=== PATIENT | male | born 1970 | race Caucasian/White ===

== ENCOUNTER → 2020-06-07 15:43 | Outpatient (BNVA) | payer BC, SELFPAY | PROVIDERS: PCP Internal Medicine; Referring Provider Internal Medicine; Visit Provider Hospitalist | DX: Z76.89 Persons encountering health services in other specified circumstances (principal) ==

== ENCOUNTER → 2020-12-13 15:52 | Outpatient (BNVA) | payer BC, SELFPAY | PROVIDERS: PCP Internal Medicine; Visit Provider Hospitalist ==

== ENCOUNTER → 2021-07-11 15:50 | Outpatient (BNVA) | payer BC, SELFPAY | PROVIDERS: PCP Internal Medicine; Visit Provider Hospitalist ==

== ENCOUNTER 2021-07-23 15:09 | Outpatient (REF) | payer BC, SELFPAY ==
[2021-07-23 15:19] LABS: MANUAL DIFF FLAG NO
[2021-07-23 15:37] LABS: Basophils Percent Auto 0.4 % (0-2); Eosinophils Absolute Auto 0.1 X10*3/uL (0.0-0.4); Eosinophils Percent Auto 1.5 % (0-4); Hematocrit 43.7 % (42.0-52.0); Hemoglobin 14.7 g/dl (14.0-18.0); Imm Gran Abs Auto 0.01 X10*3/uL (0.00-0.03); Imm Gran Pct Auto 0.2 % (0.0-0.4); Lymphocytes Absolute Auto 1.1 X10*3/uL (1.2-4.9); Lymphocytes Percent Auto 23.4 % (20-40); Mean Corpuscular HGB Conc 33.6 g/dl (31.0-36.0); Mean Corpuscular Hemoglobin 29.8 pg (27.0-33.0); Mean Corpuscular Volume 88.5 fL (80.0-98.0); Monocytes Absolute Auto 0.4 X10*3/uL (0.1-1.2); Monocytes Percent Auto 7.9 % (2-11); Neutrophils Absolute Auto 3.2 x10*3/uL (2.0-8.3); Neutrophils Percent Auto 66.6 % (45-73); Platelet Count 242 X10*3/uL (160-400); Red Blood Count 4.94 X10*6/uL (4.60-5.80); Red Cell Distribution Width 13.2 % (11.0-16.0); White Blood Count 4.8 X10*3/uL (4.8-10.8)
[2021-07-25 15:02] LABS: Anti Nuclear Antibody Screen NEGATIVE (NEGATIVE)
[2021-07-26 07:57] LABS: Antibody to SS-A Antigen <1.0 NEG AI (<1.0 NEG); Antibody to SS-B Antigen <1.0 NEG AI (<1.0 NEG); Scleroderma 70 Antibody <1.0 NEG AI (<1.0 NEG)
== END 2021-07-23 15:10 | disposition home or self-care (01) ==
LOC: HO.LAB 15:09
PROVIDERS: PCP Internal Medicine; Visit Provider Hospitalist
DX: R91.8 Other nonspecific abnormal finding of lung field (principal)
CPT/HCPCS: 36415; 85025; 86038; 86039; 86235

== ENCOUNTER 2021-10-23 16:28 | Outpatient (REF) | payer BC, SELFPAY ==
--- NOTE | ~2021-10-23 | CT_ITS ---
EXAMINATION: CT CHEST WITHOUT CONTRAST CLINICAL INFORMATION: Followup nodules. COMPARISON: None TECHNIQUE: Multidetector volumetric CT imaging of the chest was done. Axial MIP volume rendering provided. Sagittal and coronal reformatted images were obtained. This CT examination was performed using dose optimization techniques as appropriate, variously including the following: *Automated exposure control *Adjustment of mA and/or kV according to patient size (this includes techniques or standardized protocols for targeted exams where dose is matched to indication/reason for exam; i.e. extremities or head) *Use of iterative reconstruction technique DLP: 162 mGy-cm FINDINGS: FILTER PULP WASHER: Unremarkable. LUNGS: There is a 4 mm ill-defined nodule left lung apex image 13/4, 1 mm calcified nodule right upper lobe axial image 209/7, 1 mm nodule image 255/7, 2 mm calcified nodule right upper lobe axial image 319/7, 2 mm nodule in the lingula axial image 395/7, 1 mm nodule right lower lobe axial image 420/7, 2 mm calcified nodule left lower lobe axial image 426/7, 4 mm nodule right lower lobe lateral segment image 487/7. No acute consolidation, ground-glass density or mass visualized. MEDIASTINUM: The thyroid lobes are symmetrical and normal. The central trachea and the bronchi are widely patent. The heart size and the great vessels are normal caliber. There is no pericardial effusion. No abnormal sized mediastinal or hilar lymph nodes seen. PLEURA: There is no pleural effusion. No pleural mass or thickening. AXILLA: No lymphadenopathy. UPPER ABDOMEN: The visualized liver, spleen, pancreas, and bilateral adrenal glands are unremarkable. No radiopaque gallstones or wall thickening seen. OSSEOUS STRUCTURES: There is no lytic or sclerotic process seen. There is mild spondylosis of the dorsal spine. CT/CT chest wo con IMPRESSION: Stable calcified and some noncalcified scattered nodules in the range of 1 to 4 mm throughout both lungs. The calcified nodules are likely granulomas. Recommend 18 to 24-month followup as per Fleischner guidelines. Fleischner guidelines were followed.
== END 2021-10-23 16:29 | disposition home or self-care (01) ==
LOC: HO.CT 16:28
PROVIDERS: Visit Provider Hospitalist
DX: R91.8 Other nonspecific abnormal finding of lung field (principal)
CPT/HCPCS: 71250

== ENCOUNTER → 2021-11-08 15:06 | Outpatient (BNVA) | payer BC, SELFPAY | PROVIDERS: PCP Internal Medicine; Visit Provider Hospitalist | DX: R91.8 Other nonspecific abnormal finding of lung field (principal) ==

== ENCOUNTER → 2022-08-15 13:19 | Outpatient (BNVA) | payer BC, SELFPAY | PROVIDERS: PCP Internal Medicine; Visit Provider Hospitalist | DX: Z23 Encounter for immunization (principal); R91.8 Other nonspecific abnormal finding of lung field; J45.40 Moderate persistent asthma, uncomplicated; I73.00 Raynaud's syndrome without gangrene; R06.00 Dyspnea, unspecified | CPT/HCPCS: 90471; 90686 ==

== ENCOUNTER → 2023-02-27 15:41 | Outpatient (BNVA) | payer BC, SELFPAY | PROVIDERS: PCP Internal Medicine; Visit Provider Hospitalist ==

== ENCOUNTER 2023-04-29 13:38 | Outpatient (REF) | payer BC, SELFPAY ==
--- NOTE | ~2023-04-29 | MR_ITS ---
EXAMINATION: MR BRAIN WITH AND WITHOUT CONTRAST CLINICAL INFORMATION: Memory loss, cognitive decline COMPARISON: None. TECHNIQUE: MRI of the brain was obtained using routine sequences before and following administration of intravenous contrast. A total of 7.5 mL of Gadavist was administered intravenously. FINDINGS: No acute infarct. The GRE sequence is without susceptibility artifact to suggest acute or chronic blood products. No extra-axial fluid collection. The ventricles and sulci are normal in size and configuration without significant volume loss or hydrocephalus. No parenchymal signal abnormality. No abnormal intraparenchymal or leptomeningeal enhancement. No significant mass effect or herniation pattern. The intracranial dural venous sinus and arterial flow voids are preserved. Borderline low-lying terminating up to 6 mm below the foramen magnum with effacement of the dorsal CSF but no mass effect along the cervicomedullary junction. Reduced medullopontine interval measuring 5 mm, however without additional ancillary findings to suggest spontaneous intracranial hypotension. The orbits are grossly unremarkable. Mild to moderate ethmoid air cell mucosal thickening otherwise mild scattered paranasal sinus mucosal disease. A few opacified bilateral mastoid air cells. Normal marrow signal. MR/MR head/brain wo/w con IMPRESSION: No acute intracranial abnormality or pathologic intracranial enhancement. No significant volume loss or parenchymal signal abnormality. Borderline low-lying terminating up to 6 mm below the foramen magnum with effacement of the dorsal CSF but no mass effect along the cervicomedullary junction. Reduced medullopontine interval measuring 5 mm, however without additional ancillary findings to suggest spontaneous intracranial hypotension.
[2023-04-29] MEDS: gadobutroL 7.5 ML VIAL IVPUSH (14:20)
== END 2023-04-29 13:39 | disposition home or self-care (01) ==
LOC: HO.MRI 13:38
PROVIDERS: PCP Internal Medicine; Visit Provider Psychiatry & Neurology Neurology
DX: G93.40 Encephalopathy, unspecified (principal)
CPT/HCPCS: 70553; A9585

== ENCOUNTER 2023-08-05 15:01 | Outpatient (REF) | payer BC, SELFPAY ==
--- NOTE | ~2023-08-05 | CT_ITS ---
EXAMINATION: CT CHEST WITHOUT CONTRAST CLINICAL INFORMATION: Follow-up pulmonary nodules. COMPARISON: Chest CT 10/23/2021 and 05/18/2020 and 05/03/2019. TECHNIQUE: Multidetector volumetric CT imaging of the chest was done. Axial MIP volume rendering provided. Sagittal and coronal reformatted images were obtained. This CT examination was performed using dose optimization techniques as appropriate, variously including the following: *Automated exposure control *Adjustment of mA and/or kV according to patient size (this includes techniques or standardized protocols for targeted exams where dose is matched to indication/reason for exam; i.e. extremities or head) *Use of iterative reconstruction technique DLP: 173 mGy-cm FINDINGS: LUNGS: Multiple scattered tiny lung nodules measuring up to 3-4 mm are stable. No new or suspiciously enlarging nodule. MEDIASTINUM: The mediastinum is normal. CORONARY ARTERY CALCIFICATION: None visualized on this study. PLEURA: There is no pleural effusion. No pleural mass or thickening. AXILLA: No lymphadenopathy. UPPER ABDOMEN: Parapelvic cysts in the left kidney are simple and require no follow-up. OSSEOUS STRUCTURES: No suspicious osseous lesions. CT/CT chest wo IV con IMPRESSION: Stable tiny nodules. No follow-up imaging is recommended as per Fleischner Society guidelines.. Fleischner guidelines were followed.
== END 2023-08-05 15:02 | disposition home or self-care (01) ==
LOC: HO.CT 15:01
PROVIDERS: PCP Internal Medicine; Visit Provider Hospitalist
DX: R91.8 Other nonspecific abnormal finding of lung field (principal)
CPT/HCPCS: 71250

== ENCOUNTER 2023-09-28 15:30 | Outpatient (AMB) | payer BC, SELFPAY ==
[2023-09-28 15:35] VITALS: PULSE 61; O2SAT 100; BMI 25.1
--- NOTE | 2023-09-28 15:35 | A.OFFVIS_ITS ---
Intake Vital Signs 09/28/23 15:35 Height 5 ft 7 in Weight 160 lb BMI 25.1 Pulse 61 Pulse Source Pulse Oximeter Pulse Oximetry (%) 100 Oxygen Delivery Method Room Air Intake Visit Reasons: asthma Drilling Assistant Required: No Allergies No Known Allergies [No Known Allergies*] Allergy (Verified 09/28/23 15:36) HPI HPI Comments History of Present Illness Details The patient is a 53 y/o man with a history pulmonary nodules and history of prostate cancer. Overall he is doing a lot better. He was evaluated for a lower respiratory infection several weeks ago. He was started general Advair given antibiotics. We did review his pulmonary function studies which demonstrate normal lung mechanics. He also had a CT scan of the chest demonstrating small 2-3 mm pulmonary nodules. Overall though looks stable. He should get another CT scan in a year. He has been complaining of significant siddhartha ght loss and also other constitutional symptoms including decreased energy. Based on the pulmonary nodules will do brief workup. At this point he still has the pulmonary nodules. His next CAT scan will be for May 2020. He has been complaining of difficulty concentrating. Also has daytime drowsiness. His Providence score is elevated 08/30. His primary care doctor was also concern and did recommend for him to have a sleep study. At this point will do a sleep study. 08/15/2022 the patient is here for a pulmonary follow-up visit. he has been complaining of worsening dyspnea on exertion. Khah-pf-qaydlgyh severity. Does get better with rest. 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 He does use the Symbicort but not regularly. Patient understands that he needs to use it regularly to see the improvement in his respiratory status. He is willing to use it at least in the morning which is reassuring. If he needs a later on in the evening he can also use it then as needed. The patient did undergo a CT scan of the chest back in October 2021. We did review it together and we also reviewed a [facility] CT [facility] that [facility]. At least from my evaluation appears that he has more subcentimeter pulmonary nodules now that he had done. They are small between 2 to mm in size. Therefore will go ahead and repeat the CT scan the year from now to assess further progression of these nodules. The patient also has a significant family history of pulmonary fibrosis. No evidence of any interstitial lung disease or pneumoconiosis appreciated. Continue to monitor closely. 02/27/2023 the patient is here for pulmonary follow-up visit. Overall the patient has been doing well from a respiratory status. He had a hard time recently when working in a very humid it hard room. He does have his rescue medication to use at times. Otherwise no issues. Has not required any antibiotics or prednisone. The patient does have underlying pulmonary nodules with a history of prostate cancer. The patient's nodules have been stable for many years. We will be following with a repeat CT scan [address] last [address] scan which will be in August 2023. Will plan to follow-up afterwards we can compare his CT scans together. Otherwise patient is doing well will call if any issues arise. 09/28/2023 the patient is here for a pulmonary follow-up visit. Overall the patient has been doing well from a respiratory status. He does have his respiratory medications that he uses as prescribed. He has not required any prednisone antibiotics. He recently underwent a orthopedic procedure for his knee and seems to be doing well from that. The patient did have a CT scan back in July 2023 and we did compare to his previous CT scans. His pulmonary nodules have been stable altogether for many years. Therefore this point is safe for us to stop imaging his chest. He will continue using his respiratory medications. Will follow-up in a year's time. If he develops any worsening symptoms prior to that he will call for an earlier assessment. [facility] Medical History (Updated 09/28/23 @ 19:58 by Tristan Dover MD) Dyspnea Raynaud disease Prostate CA Pulmonary nodules Asthma Family History (Updated 06/02/20 @ 13:28 by SHERRILL Acosta) Father Pulmonary fibrosis Mother Pulmonary fibrosis Social History (Updated 11/18/21 @ 09:48 by SHERRILL Acosta) Patient Tobacco Use Status: Never used Tobacco Years Smoked: off and on Review of Systems Const Denies night sweats ENT Denies change in voice, Denies lip swelling, Denies mouth pain, Reports nasal congestion, Reports nasal discharge and Denies tongue swelling Card Denies chest pain and Denies dyspnea on exertion Resp Reports cough and Denies dyspnea on exertion GI Denies abdominal pain Musc Denies no additional complaints and Reports back pain Skin/Breast Reports other ( Raynaud's) Neuro Denies Neuro-related abnormal movements and Reports radicular pain Psych Denies no additional complaints and Reports anxiety Quinton/Lymph Denies easy bleeding, Denies easy bruising and Denies lymphadenopathy Aller/Immun Denies lip swelling and Denies tongue swelling Physical Exam Vital Signs: Last Vital Signs Pulse 61 09/28/23 15:35 Pulse Ox 100 09/28/23 15:35 Oxygen Delivery Method Room Air 09/28/23 15:35 BMI result Body Mass Index 25.1 Const General: alert HEENT Head: Yes normocephalic Neck Neck: Yes normal visual inspection, Yes full ROM and Yes no lymphadenopathy Chest Chest palpation & inspection: normal inspection of the chest Resp Effort & Inspection: normal respiratory effort Auscultation: clear to auscultation bilaterally Cardio Rate: regular rate Rhythm: regular rhythm Heart sounds: S1 normal heart sound present and S2 normal heart sound present GI Palpation (GI): Soft to palpation and nontender Auscultation: normal bowel sounds Skin General skin exam: no rashes or lesions noted Extrem General: Yes no clubbing, cyanosis or edema Assessment & Plan Assessment & Plan (1) Pulmonary nodules: Comment: stable Code(s): R91.8 - Other nonspecific abnormal finding of lung field (2) Asthma: Code(s): J45.909 - Unspecified asthma, uncomplicated Qualifiers: Asthma complication type: uncomplicated Asthma persistence: persistent Asthma severity: moderate Qualified Code(s): J45.40 - Moderate persistent asthma, uncomplicated (3) Raynaud disease: Code(s): I73.00 - Raynaud's syndrome without gangrene Qualifiers: Raynaud?s-associated gangrene presence: without gangrene Qualified Code(s): I73.00 - Raynaud's syndrome without gangrene Plan Continue Symbicort ALEJANDRA asneeded Continue Singulair and Zyrtec as needed No further serial CT chest F/U 1 yr Coding Level of Care Code Est Pt Level 4 (74020) Diagnoses Pulmonary nodules R91.8 Moderate persistent asthma without complication J45.40 Asthma complication type: uncomplicated Asthma persistence: persistent Asthma severity: moderate Raynaud's disease without gangrene I73.00 Raynaud?s-associated gangrene presence: without gangrene Time Spent (min) 16
== END 2023-09-28 15:51 | disposition home or self-care (01) ==
PROVIDERS: PCP Internal Medicine; Visit Provider Hospitalist
DX: R91.8 Other nonspecific abnormal finding of lung field (principal); J45.40 Moderate persistent asthma, uncomplicated; I73.00 Raynaud's syndrome without gangrene
CPT/HCPCS: 99214

== ENCOUNTER → 2023-09-28 15:30 | Outpatient (BNVA) | payer BC, SELFPAY | PROVIDERS: PCP Internal Medicine; Visit Provider Hospitalist ==

== ENCOUNTER 2024-06-20 15:41 | Outpatient (REF) | payer BC, SELFPAY ==
[2024-06-20 17:22] LABS: Vitamin B12 363 pg/mL (200-900)
== END 2024-06-20 15:42 | disposition home or self-care (01) ==
LOC: HO.LAB 15:41
PROVIDERS: PCP Internal Medicine; Visit Provider Psychiatry & Neurology Neurology
DX: G31.84 Mild cognitive impairment of uncertain or unknown etiology (principal)
CPT/HCPCS: 36415; 82607

== ENCOUNTER 2024-10-14 14:45 | Outpatient (AMB) | payer BC, SELFPAY ==
--- NOTE | 2024-10-14 14:46 | MHC.OFFVIS ---
Vital Signs 10/14/24 14:47 Height 5 ft 7 in Weight 160 lb 14.999 oz BMI 25.2 BP 128/86 Blood Pressure Location Rt brachial Position Sitting Pulse 66 Pulse Source Pulse Oximeter Pulse Oximetry (%) 99 Oxygen Delivery Method Room Air Intake Visit Reasons: Asthma Allergies No Known Allergies [No Known Allergies*] Allergy (Verified 10/14/24 14:49) HPI Comments Details: The patient is a 54 y/o man with a history pulmonary nodules and history of prostate cancer. Overall he is doing a lot better. He was evaluated for a lower respiratory infection several weeks ago. He was started general Advair given antibiotics. We did review his pulmonary function studies which demonstrate normal lung mechanics. He also had a CT scan of the chest demonstrating small 2-3 mm pulmonary nodules. Overall though looks stable. He should get another CT scan in a year. He has been complaining of significant weight loss and also other constitutional symptoms including decreased energy. Based on the pulmonary nodules will do brief workup. At this point he still has the pulmonary nodules. His next CAT scan will be for May 2020. He has been complaining of difficulty concentrating. Also has daytime drowsiness. His [place] score is elevated 08/30. His primary care doctor was also concern and did recommend for him to have a sleep study. At this point will do a sleep study. 08/15/2022 the patient is here for a pulmonary follow-up visit. he has been complaining of worsening dyspnea on exertion. [id number]-egkcmulv severity. Does get better with rest. 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 He does use the Symbicort but not regularly. Patient understands that he needs to use it regularly to see the improvement in his respiratory status. He is willing to use it at least in the morning which is reassuring. If he needs a later on in the evening he can also use it then as needed. The patient did undergo a CT scan of the chest back in October 2021. We did review it together and we also reviewed a previous CT scan that [facility]. At least from my evaluation appears that he has more subcentimeter pulmonary nodules now that he had done. They are small between 2 to mm in size. Therefore will go ahead and repeat the CT scan the year from now to assess further progression of these nodules. The patient also has a significant family history of pulmonary fibrosis. No evidence of any interstitial lung disease or pneumoconiosis appreciated. Continue to monitor closely. 02/27/2023 the patient is here for pulmonary follow-up visit. Overall the patient has been doing well from a respiratory status. He had a hard time recently when working in a very humid it hard room. He does have his rescue medication to use at times. Otherwise no issues. Has not required any antibiotics or prednisone. The patient does have underlying pulmonary nodules with a history of prostate cancer. The patient's nodules have been stable for many years. We will be following with a repeat CT scan [address] last [address] scan which will be in August 2023. Will plan to follow-up afterwards we can compare his CT scans together. Otherwise patient is doing well will call if any issues arise. 09/28/2023 the patient is here for a pulmonary follow-up visit. Overall the patient has been doing well from a respiratory status. He does have his respiratory medications that he uses as prescribed. He has not required any prednisone antibiotics. He recently underwent a orthopedic procedure for his knee and seems to be doing well from that. The patient did have a CT scan back in July 2023 and we did compare to his previous CT scans. His pulmonary nodules have been stable altogether for many years. Therefore this point is safe for us to stop imaging his chest. He will continue using his respiratory medications. Will follow-up in a year's time. If he develops any worsening symptoms prior to that he will call for an earlier assessment. 10/14/2024 the patient is here for a pulmonary follow-up visit. Overall he is doing well from a respiratory status. He has his inhalers. He does not have to use it all the time which is reassuring. He does continue to use his allergy medicine. Sometimes he does have some allergies. Ncoh-mk-mzjuzvct severity. The patient is having issues with sleep though he is waking up tired. His [place] score is elevated /24. He did have a sleep study in the past demonstrating borderline sleep apnea. At this point will going to focus on sleep hygiene. He is willing to try trazodone to see if we can get him to stay asleep. Hopefully this way he will have better sleep hygiene and will not need the sleep study. He continues to be symptomatic that will consider sleep study in the future. The patient also should get an x-ray. I will put an order in for him to have 1 done will follow-up sometime next year. If any issues arise will call for an earlier assessment. [facility] Medical History (Updated 10/16/24 @ 20:20 by Tristan Dover MD) Insomnia Dyspnea Raynaud disease Prostate CA Pulmonary nodules Asthma Family History (Updated 06/02/20 @ 13:28 by Shauna Hansen RMKelly) Father Pulmonary fibrosis Mother Pulmonary fibrosis Social History Patient Tobacco Use Status: Never used Tobacco Years Smoked: off and on Review of Systems Const Reports daytime sleepiness, Reports difficulty sleeping and Denies night sweats ENT Denies change in voice, Denies lip swelling, Denies mouth pain, Reports nasal congestion, Reports nasal discharge and Denies tongue swelling Card Denies chest pain and Denies dyspnea on exertion Resp Reports cough, Denies dyspnea on exertion and Reports wheezing GI Denies abdominal pain Musc Denies no additional complaints and Reports back pain Skin/Breast Reports other ( Raynaud's) Neuro Denies Neuro-related abnormal movements and Reports radicular pain Psych Denies no additional complaints and Reports anxiety Quinton/Lymph Denies easy bleeding, Denies easy bruising and Denies lymphadenopathy Aller/Immun Denies lip swelling, Denies tongue swelling and Reports wheezing Physical Exam Vital Signs: Last Vital Signs Pulse 66 10/14/24 14:47 BP 128/86 10/14/24 14:47 Pulse Ox 99 10/14/24 14:47 Oxygen Delivery Method Room Air 10/14/24 14:47 BMI result Body Mass Index 25.2 Const General: alert HEENT Head: Yes normocephalic Neck Neck: Yes normal visual inspection, Yes full ROM and Yes no lymphadenopathy Chest Chest palpation & inspection: normal inspection of the chest Resp Effort & Inspection: normal respiratory effort Auscultation: clear to auscultation bilaterally Cardio Rate: regular rate Rhythm: regular rhythm Heart sounds: S1 normal heart sound present and S2 normal heart sound present GI Palpation (GI): Soft to palpation and nontender Auscultation: normal bowel sounds Skin General skin exam: no rashes or lesions noted Extrem General: Yes no clubbing, cyanosis or edema Office Procedures Flu Questionnaire Does the patient have a severe egg allergy?: No Does the patient have severe life threatening allergies?: No Does the patient have a fever or illness today?: No Has the patient ever had Guillain-Savannah Syndrome?: No Has the patient ever had any past reaction to a flu shot?: No Immunizations Fluarix Triv (PF) 45 mcg (15 mcg x 3)/0.5 mL IM syringe Performing Provider: Tristan Dover MD [place] [facility] [place] [facility] Administered by: Regina Casper LPN on 10/14/24 15:23 Dose Route Admin Location Dispensed Lot Number Expiration Date [place] Extrusion Line Operator 0.5 mL IM Left Deltoid 0.5 mL [id number] 03/06/25 80314-992-42 [employer] VIS Given Date VIS Provided VIS Publication Date 10/14/24 Single Vaccine 21 Eligibility Eligibility Date Funding Source Not VFC Eligible 10/14/24 Private pneumoc 20-brooklyn conj-dip cr(PF) 0.5 mL IM syringe Performing Provider: Tristan Dover MD [place] [facility] [place] [facility] Administered by: Regina Casper LPN on 10/14/24 15:23 Dose Route Admin Location Dispensed Lot Number Expiration Date ND Extrusion Line Operator 0.5 mL IM Right Deltoid 0.5 mL [id number] 10/07/25 3598-4861-36 [employer] VIS Given Date VIS Provided VIS Publication Date 10/14/24 Single Vaccine 23 Eligibility Eligibility Date Funding Source Not VFC Eligible 10/14/24 Private Assessment & Plan Assessment & Plan (1) Pulmonary nodules: Comment: stable Code(s): R91.8 - Other nonspecific abnormal finding of lung field Category: Medical (2) Asthma: Code(s): J45.909 - Unspecified asthma, uncomplicated Category: Medical Qualifiers: Asthma complication type: uncomplicated Asthma persistence: persistent Asthma severity: moderate Qualified Code(s): J45.40 - Moderate persistent asthma, uncomplicated (3) Raynaud disease: Code(s): I73.00 - Raynaud's syndrome without gangrene Category: Medical Qualifiers: Raynaud?s-associated gangrene presence: without gangrene Qualified Code(s): I73.00 - Raynaud's syndrome without gangrene (4) Insomnia: Code(s): G47.00 - Insomnia, unspecified Category: Medical Qualifiers: Insomnia type: primary Qualified Code(s): F51.01 - Primary insomnia Plan Continue Symbicort ALEJANDRA asneeded Continue Singulair and Zyrtec as needed start Trazodone for sleep CXR F/U 1 yr Orders: Orders Pneumococcal 20 Immunization 10/14/24 Z23 - Encounter for immunization Influenza [id number] Immunization 10/14/24 J45.40 - Moderate persistent asthma, uncomplicated XR chest 2V 10/14/24 R91.8 - Other nonspecific abnormal finding of lung field Medications: New trazodone 100 mg (2 x 50 mg) PO BEDTIME PRN 60 tabs 11RF sleep 30 days fluticasone propionate 50 mcg/actuation 2 sprays intranasal DAILY 15.8 mL 11RF 30 days J31.0 - Chronic rhinitis Changed From albuterol sulfate 90 mcg/actuation 2 inhalations inhalation Q6H PRN To albuterol sulfate 90 mcg/actuation 2 inhalations inhalation Q6H PRN 1 ea 11RF shortness of breath or wheezing 30 days From montelukast (Singulair) 10 mg PO BEDTIME To montelukast (Singulair) 10 mg PO BEDTIME 90 tabs 3RF 90 days Coding Level of Care Code Est Pt Level 4 (59457) Diagnoses Pulmonary nodules R91.8 Moderate persistent asthma without complication J45.40 Asthma complication type: uncomplicated Asthma persistence: persistent Asthma severity: moderate Raynaud's disease without gangrene I73.00 Raynaud?s-associated gangrene presence: without gangrene Primary insomnia F51.01 Insomnia type: primary Time Spent (min) 16
[2024-10-14 14:47] VITALS: BP 128/86; PULSE 66; O2SAT 99; BMI 25.2
== END 2024-10-14 15:14 | disposition home or self-care (01) ==
PROVIDERS: PCP Internal Medicine; Visit Provider Hospitalist
DX: R91.8 Other nonspecific abnormal finding of lung field (principal); J45.40 Moderate persistent asthma, uncomplicated; I73.00 Raynaud's syndrome without gangrene; F51.01 Primary insomnia
CPT/HCPCS: 99214

== ENCOUNTER → 2024-10-14 14:45 | Outpatient (BNVA) | payer BC, SELFPAY | PROVIDERS: PCP Internal Medicine; Visit Provider Hospitalist | DX: J45.40 Moderate persistent asthma, uncomplicated (principal); R91.8 Other nonspecific abnormal finding of lung field; I73.00 Raynaud's syndrome without gangrene; F51.01 Primary insomnia; Z23 Encounter for immunization | CPT/HCPCS: 90471; 90472; 90656; 90677 ==